=== PATIENT | female | born 1970 | race Caucasian/White ===

== ENCOUNTER → 2024-05-06 | Outpatient (CLI) | payer OTHER, SELFPAY ==
--- NOTE | 2024-05-06 | CYSPIN_PTH ---
PATIENT: VILMA ARCHER LOC: [facility] U#:[id number] AGE/SX: 53/F ROOM: RE05/06/[address]: Dr. Georgiana Wayne MD : 1970 BED: DIS: 05/06/2024 SPEC #: [id number] RECD: 05/07/24 15:00 STATUS: CECI MENDEZ #: [id number] TRACY: 05/06/24 00:[address]: Georgiana Wayne DEPT: CYTOLOGY RECD BY: Linh Koch ENTERED: 05/07/24 08:47 SP TYPE: CYSPIN FL OTHR DR: Violet Croft, TIRE MECHANIC-C Tissues: Urine Procedures: Pap Stain (control) Special Stain Group II Cytospin Fluid HEADER OPERATION: Not noted PRE-OP DIAGNOSIS: Gross hematuria TISSUE SUBMITTED: Urine for cytology DIAGNOSIS CYTOLOGY Urine for cytology (cytospin): Negative for high grade urothelial carcinoma (NSGUC), Kristi System Category II. See comment. PJ/ 05/07/2024 COMMENT The specimen predominantly consists of squamous epithelial cells. Clinical correlation and appropriate follow up are necessary. The Kristi System for urine cytology diagnostic categorization was used in the evaluation of this case. CYTOLOGY STUDY Slides are reviewed. CYTOLOGY GROSS Received is 45 ml of hazy-yellow fluid labeled with the patient's name and and designated per the requisition as urine. Submitted for cytology preparation. Mr 05/07/2024 TC:4 CPT: 05507
[2024-05-06 16:09] LABS: Anion Gap 8 (5-15); BUN 14 mg/dL (7-18); BUN/Creat Ratio 18.7 RATIO (10-20); Calcium,Total 9.7 mg/dL (8.5-10.1); Chloride 106 mmol/L (98-107); Creatinine, Serum 0.75 mg/dL (0.55-1.02); EST Glomerular Filtration Rate 86 mL/min (>60); Est Glom Filt Rate - Afr Amer 104 mL/min (>60); Glucose 93 mg/dL (74-106); Sodium Level 140 mmol/L (136-145)
[2024-05-06 16:47] LABS: Cytology, Body Fluid / CSF SEE PATHOLOGY REPORT
== END | disposition home or self-care (01) ==
PROVIDERS: PCP Nurse Practitioner Primary Care; Referring Provider Urology; Visit Provider Urology
DX: R31.0 Gross hematuria (principal)
CPT/HCPCS: 36415; 80048; 88108; 88313

== ENCOUNTER 2024-07-10 07:57 | Day surgery (SDC) | payer OTHER, SELFPAY ==
[2024-07-10] VITALS (8 sets, daily range): BP systolic 90–123; BP diastolic 56–83; PULSE 67–75; RESP 14–18; TEMP 36.1–36.5; O2SAT 92–98; BMI 35.4
--- NOTE | 2024-07-10 08:12 | PCM.PRE.AN2 ---
ASA Classification* ASA Classification ASA Classification: 2 Assessment & Plan Anesthesia* Anesthesia Assessment Anesthesia Assessment: Discussed sedation and/or anesthesia options, risks, benefits, and alternatives with patient/parents/legal guardian/POA. Questions invited. The patient/parents/legal guardian/POA seems to understand and agrees to proceed with anesthesia plan. Reviewed the physical assessment, medical history, allergy history and patient home medications list prior to surgery/procedure/anesthetic and documented any changes. Performed airway and anesthesia risk assessments. 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 When Was Last Pacemaker Check QUESTION #4 FULL TEXT: You/Your Family Experience fever (hyperthermia) with Anesthesia Last Oral Intake Last Oral intake: Last Oral Intake NPO since Meds taken in AM with sips of water? Meds patient instructed to take am of surgery PONV PONV - corporate wellness coordinator: PONV - corporate wellness coordinator Female Yes 06/17/24 13:53 HX of Motion Sickness No 06/17/24 13:53 HX of N/V After Surgery No 06/17/24 13:53 Non-Smoker Yes 06/17/24 13:53 Duration of Surgery greater No 06/17/24 13:53 than 60 minutes Number of Risk Factors 2 06/17/24 13:53 PONV Score Moderate Risk 06/17/24 13:53 Respiratory Assessment Respiratory Assessment - corporate wellness coordinator: Respiratory Tract Infection Hx - corporate wellness coordinator Hx Respiratory Tract Infection No 06/17/24 13:53 STOP Sleep Apnea STOP Sleep Apnea - corporate wellness coordinator: STOP Sleep Apnea - corporate wellness coordinator Hx Hypertension No 06/17/24 13:53 Hx Sleep Apnea Yes: SLIGHT 06/17/24 13:53 CPAP No 06/17/24 13:53 BIPAP No 06/17/24 13:53 Do you snore loudly (louder than talking or can be heard Do you often feel tired/ fatigued/ sleepy during daytime? Has anyone observed you stop breathing during sleep? STOP Results Positive 06/17/24 13:53 QUESTION #5 FULL TEXT : Do you snore loudly (louder than talking or can be heard through closed doors)? Tobacco Use History Tobacco Use History - corporate wellness coordinator: Tobacco Use History - corporate wellness coordinator Tobacco Use Smoking Status Never smoker 06/17/24 13:53 Hx Tobacco Use No 06/17/24 13:53 Years Smoking Packs Smoked per Day Smoking Cessation Date was within the last 15 years Hx Smoking Cessation Date Hx Smoking Cessation Counseling Hematologic Medial History Hematologic Hx - corporate wellness coordinator: Hematologic Medical Hx - clinical documentation spec Hx of Blood Transfusion No 06/17/24 13:53 Hx of Transfusion in last 3 No 06/17/24 13:53 Months Date of Last Transfusion (if within last 3 months) Ever experience any problems No 06/17/24 13:53 with transfusion(s)? Specify any problems Hx of Preganancy in last 3 N/A 06/17/24 13:53 Months Nurse Filling Out Transfusion NBUCHER 06/17/24 13:53 & Questions: Date: 06/17/24 06/17/24 13:53 Time: 13:54 06/17/24 13:53 Patient unable to answer at this time (ie. confused, unrespo /Reproduction History /Reproductive History - corporate wellness coordinator: /Reproductive Hx- corporate wellness coordinator Hx Now No 06/17/24 13:53 Gestational Age (in weeks): EDC: Hx Hx Para Hx Section SAB No 06/17/24 13:53 Active Medications Active Medications: Current Medications Generic Name Dose Route Start Last Admin Trade Name Freq PRN Reason Stop Dose Admin Cefazolin Sodium 2 gm/ N/A 20 mls @ 400 mls/hr 07/10/24 10:15 IV 07/10/24 10:17 PREOP ONE Lactated Ringer's 1,000 mls @ 15 mls/hr 07/10/24 08:15 IV 07/15/24 21:34 .Q48H [facility] Protocol PFSH Medical History Post-menopausal Low iron Home Medications ?Medication ?Instructions ?Recorded ?Last Taken ?Type ascorbic acid (vitamin C) 1,000 mg 1 g PO DAILY 06/17/24 Unknown History tablet (C-1000) Allergy/AdvReac Type Severity Reaction Status Date / Time No Known Allergies Allergy Verified 06/25/24 09:12 Surgical History History of left breast biopsy History of colonoscopy History of arthroscopy of shoulder Social History Smoking Status: Never smoker Review of Systems (Anesthesia) ROS Narrative System reviewed and no additional complaints, except as documented.
--- OUTSIDE RECORDS SUMMARY | 2024-07-10 08:20 | XMS RPT_ITS | CCD ---
Author Organization [facility] Care Team Providers Care Employment Coach Name Role Phone MANUEL APPEALS OFFICER-MOP MAN, JIM S Primary Care Physicia n MANUEL APPEALS OFFICER-MOP MAN, JIM S Primary Care Unava AMILCAR Carlton MD Attending Unavailable MANUEL APPEALS OFFICER-MOP MAN, JIM S Primary Care Unava ilable MANUEL APPEALS OFFICER-MOP MAN, JIM S Attending Unava ilable MANUEL APPEALS OFFICER-MOP MAN, JIM S Attending Unava ilable MANUEL APPEALS OFFICER-MOP MAN, JIM S Primary Care Unava ilable JC APPEALS OFFICER-MOP MAN, AKIN BOATENG Attending U navailable MANUEL APPEALS OFFICER-MOP MAN, JIM S Primary Care Unava ilable MANUEL APPEALS OFFICER-MOP MAN, JIM S Attending Unava ilable MANUEL APPEALS OFFICER-MOP MAN, JIM S Primary Care Unava ilable MANUEL APPEALS OFFICER-MOP MAN, JIM S Primary Care Unava ilable JC APPEALS OFFICER-MOP MAN, AKIN BOATENG Admitting U navailable JC APPEALS OFFICER-MOP MAN, AKIN BOATENG Attending U AMILCAR Tavarez MD Consulting Unavailable MANUEL APPEALS OFFICER-MOP MAN, JIM S Primary Care Unava ilable MANUEL APPEALS OFFICER-MOP MAN, JIM S Attending Unava ilable MANUEL APPEALS OFFICER-MOP MAN, JIM S Primary Care Unava ilable MANUEL APPEALS OFFICER-MOP MAN, JIM S Attending Unava ilable MOHAN CENTENO Admitting Unavailable MOHAN CENTENO Attending Unavailable MOHAN CENTENO Primary Care Unavailable JC APPEALS OFFICER-MOP MAN, AKIN BOATENG Attending U navailable MANUEL APPEALS OFFICER-MOP MAN, JIM S Primary Care Unava ilable Medications Current Medications Medication Drug Class(es) Dates Sig (Normalized) Sig (Original) Ascorbic Acid (7 sources) Vitamin C Start: 04-22-2022 Vitamin C qDay, 0 Refill(s) Start Date: 04/22/22 Status: Ordered Multivitamin preparation (7 sources) Start: 03-18-2020 take 1 tablet by mouth once daily Multivitamin Dose = 1 tab(s), Oral, Daily, 0 Refill(s) Start Date: 03/18/20 Status: Ordered nystatin 100 unt/mg topical powder (1 source) Polyene Antifungal Start: 05-31-2022 nystatin 100,000 units/g topical powder Apply 1 kayode, Topical, BID, # 30 gram(s), 0 Refill(s), Pharmacy: [facility]/pharmacy #[id number], Powder, 157.5, cm, 05/31/22 9:26:00 EDT, Height, 85.2 Start Date: 05/31/22 Status: Ordered sulfamethoxazole 800 mg / trimethoprim 160 mg oral tablet (2 sources) Dihydrofolate Reductase Inhibitor Antibacterial, Sulfonamide Antimicrobial Start: 02-13-2024 End: 02-18-2024 take 1 tablet by mouth every twelve hours Bactrim DS 800 mg-160 mg oral tablet Dose = 1 tab(s), Oral, q12h, X 5 day(s), # 10 tab(s), 0 Refill(s), Pharmacy: [facility], 161, cm, 02/13/24 11:28:00 EDT, Height, 87.2, kg, 02/13/24 11:28:00 EDT, Dosing Weight Start Date: 02/13/24 Stop Date: 02/18/24 Status: Ordered Problems Problem Classification Problem Date Documented Da te Episodic/Chronic Genitourinary symptoms and ill-defined conditions (5 sources) Blood in urine; Translations: [Hematuria, unspecified] Onset: 02-13-2024 02-13-2024 Episodic Menstrual disorders (7 sources) Disorder of menstruation 11-20-2019 Chronic Nonmalignant breast conditions (4 sources) Breast lump 07-19-2023 Episodic Other lower respiratory disease (6 sources) Snoring 05-31-2022 Episodic Other non-traumatic joint disorders (1 source) Shoulder pain 11-20-2019 Episodic Other screening for suspected conditions (not mental disorders or infectious disease) (7 sources) Stool DNA-based colorectal cancer screening positive 11-29-2020 Episodic Other skin disorders (6 sources) Macerated skin 05-31-2022 Episodic Residual codes; unclassified (5 sources) Sleep apnea 07-13-2022 Chronic Unclassified (7 sources) Cancer cervix screening status 03-18-2020 Unclassified (20 sources) Patient encounter status 03-18-2020 Urinary tract infections (3 sources) Urinary tract infectious disease 02-13-2024 Episodic Viral infection (1 source) Disease caused by 2019-nCoV 04-22-2022 Results Test Name Value Interpretation Reference Range Facility MA MAMMOGRAM DIAGNOSTIC LEFT W/TOMOon 03-04-2024 MA MAMMOGRAM DIAGNOSTIC LEFT W/ROBERTO ORIGINAL FROM: [place] [address] PROCEDURE FOR: VILMA ARCHER [address] [place] [address] Home: PID#: [id number] Exam#: [id number] : 1970 Age: 53 TO: JIM JACKSON APRN [place] [address] Fax: NO FAX EXAMINATION: DIAGNOSTIC DIGITAL LEFT BREAST MAMMOGRAM WITH TOMOSYNTHESIS, 03/04/2024 10:41 am TECHNIQUE: Diagnostic mammography of the left breast was performed with tomosynthesis. 2D standard and 3D tomosynthesis combination imaging performed through the left breast. Computer aided detection was utilized in the interpretation of this exam. Current study was also evaluated with a Computer Aided Detection (CAD) system. COMPARISON: August 07, 2023, July 19, 2023, July 12, 2023, May 11, 2022, March 03, 2021 HISTORY: ORDERING SYSTEM PROVIDED HISTORY: Reason for Exam: 6 MONTH FU FINDINGS: BREAST DENSITY: The breasts are heterogeneously dense, which may obscure small masses. The previously biopsied area in the left breast at 9 o'clock 1-2 cm from the nipple is not visualized on the current study; ultrasound-guided biopsy had yielded benign pathology results on 08/07/2023. No other significant masses, calcifications, or other findings. IMPRESSION: Status post benign ultrasound-guided biopsy of the left breast at 9 o'clock 1-2 cm from the nipple, without residual mass. Left breast ultrasound was performed and will be reported separately. Brianna Shea risk calculations, generated with the history provided, report this patient's 10 year risk and lifetime risk for developing breast cancer at 6.3% and 21.0%, respectively. Based on this assessment tool, if the patient's calculated lifetime risk is below 20%, then the patient is considered at average risk for developing breast cancer. If the patient's calculated lifetime risk is at or above 20%, then the patient is considered high risk for developing breast cancer and may be a candidate for supplemental breast MRI screening in addition to annual mammographic screening per the [employer]. BIRADS: BI-RADS: 0: Incomplete: Need Additional Imaging Evaluation RECALL: immediate RECALL TYPE: Left US LETTER SENT: Normal-Needs additional work up BI-RADS 0 Interpreted by: Lida Balderrama Preliminary Report By: Lida Balderrama Electronically signed By Lida Balderrama Dictated Date: 03/04/2024 12:09:40 PM Prelim Date: 03/04/2024 12:37:45 PM Sign Date: 03/04/2024 12:37:45 PM Ordering Provider: AKIN GREENE CLINICAL: 6 MONTHS FOLLOW-UP. Service Crew Supervisor: ERMIAS FERRER RT(R)(M)(CT) VENDING MACHINE COLLECTOR letter sent: Normal-Needs additional work up BI-RADS 0 Mammogram BI-RADS: 0 Indeterminate Normal [facility] ([place]) US BREAST LEFT LIMITEDon US BREAST LEFT LIMITED ORIGINAL FROM: [address] [address] PROCEDURE FOR: VILMA ARCHER [address] [place] [address] Home: PID#: [id number] Exam#: [id number] : 1970 Age: 53 TO: JIM JACKSON APRN [address] [address] Fax: NO FAX EXAMINATION: ULTRASOUND OF THE LEFT BREAST 03/04/2024 10:42 am TECHNIQUE: Color flow and real-time targeted ultrasound of the left breast 9 o'clock were performed. COMPARISON: March 04, 2024, August 07, 2023, July 19, 2023, July 12, 2023, May 11, 2022, March 03, 2021 HISTORY: ORDERING SYSTEM PROVIDED HISTORY: Reason for Exam: 6 MONTH FU FINDINGS: In the left breast at 9 o'clock 2 cm from the nipple, there is interval resolution of the mass that had been biopsied utilizing ultrasound guidance on August 07, 2023, which yielded benign pathology results. In the left breast at 9 o'clock 2 cm from the nipple at middle to posterior depth, there is an oval, circumscribed, hypoechoic area measuring 0.5 cm within an island of fibroglandular tissue. IMPRESSION: Interval resolution of the mass that had been biopsied in the left breast at 9 o'clock 2 cm from the nipple, which had yielded benign pathology results. Hypoechoic area in the left breast at 9 o'clock 2 cm from the nipple, probably representing a complicated cluster of cysts, probably benign. Follow-up left breast ultrasound in 6 months is recommended; this will be at the time of the patient's annual mammogram, which should be requested as a bilateral diagnostic mammogram. [facility], generated with the history provided, report this patient's 10 year risk and lifetime risk for developing breast cancer at 6.3% and 21.0%, respectively. Based on this assessment tool, if the patient's calculated lifetime risk is below 20%, then the patient is considered at average risk for developing breast cancer. If the patient's calculated lifetime risk is at or above 20%, then the patient is considered high risk for developing breast cancer and may be a candidate for supplemental breast MRI screening in addition to annual mammographic screening per the [employer]. BIRADS: BI-RADS: 3: Probably Benign RECALL: 6 month follow-up RECALL TYPE: Mammo+US LETTER SENT: Probably Benign BI-RADS 3 Interpreted by: Lida Balderrama Preliminary Report By: Lida Balderrama Electronically signed By Lida Balderrama Dictated Date: 03/04/2024 12:37:55 PM Prelim Date: 03/04/2024 12:40:04 PM Sign Date: 03/04/2024 12:40:04 PM Ordering Provider: AKIN JC Service Crew Supervisor: Meg Caicedo letter sent: Probably Benign BI-RADS 3 Ultrasound BI-RADS: 3 Probably benign Normal [facility]) CT UROGRAMon 02-15-2024 CT UROGRAM ORIGINAL EXAMINATION: CT UROGRAM02/15/2024 3:01 pm TECHNIQUE: CT of the abdomen and pelvis was performed with and without the administration of intravenous contrast. Multiplanar reformatted images are provided for review. MIP urogram images were performed. Automated exposure control, iterative reconstruction, and/or weight based adjustment of the mA/kV was utilized to reduce the radiation dose to as low as reasonably achievable. COMPARISON: None. HISTORY: ORDERING SYSTEM PROVIDED HISTORY: Reason for Exam: hematuria FINDINGS: No significant findings in the visualized lower thorax. No acute osseous findings. Multiple simple hepatic cysts which require no additional follow-up. Cholelithiasis and/or biliary sludge. The pancreas, spleen, and adrenal glands are unremarkable. The kidneys, bilateral ureters, urinary bladder, and uterus are unremarkable. No pelvic or inguinal lymphadenopathy. The large and small bowel are non-distended. The appendix appears unremarkable though exhibits a slight increase in diameter distally with a probable appendicolith. No pericecal inflammation is noted. No abdominal lymphadenopathy. The abdominal aorta is normal in caliber. No acute osseous findings. IMPRESSION: 1. No acute intra-abdominal or pelvic findings. No nephrolithiasis. 2. Cholelithiasis. I have personally reviewed the images of this examination and agree with the resident's findings and interpretation. Interpreted by: Diego Amaral MD Preliminary Report By: Eddie Brady Electronically signed By Diego Amaral MD Dictated Date: 02/15/2024 3:03:09 PM Prelim Date: 02/15/2024 3:37:45 PM Sign Date: 02/15/2024 3:37:45 PM Ordering Provider: JIM JACKSON Normal [facility] ([place]) .Urinalysis Microscopic (AO) on 02-13-2024 UA Bacteria Trace Abnormal [facility]) Comment on above: Performed By: #### U A, UAMICAO #### Adali [address] [address] UA RBC LOADED Abnormal None Seen [facility] ([place]) Comment on above: Performed By: #### U A, UAMICAO #### [place] [address] [place], [place] [address] UA Squam Epithelial 0-5 Abnormal None Seen [facility] ([place]) Comment on above: Performed By: #### U A, UAMICAO #### [place] [address] [place], [place] [address] UA WBC 15-25 Abnormal None Seen [facility] ([place]) Comment on above: Performed By: #### U A, UAMICAO #### [place] [address] [place], [place] [address] LABORATORYOrdered By: Amilcar douglas on 02-13-2024 Appearance (U) Cloudy *ABN* (02/13/24 2:33 PM) Invalid Interpretation Code Clear AO Auto Urine SS Bacteria LM.HPF (Urine sed) [#/Area] Trace /HPF Invalid Interpretation Code AO Auto Urine SS Bilirubin Ql (U) Negative (02/13/24 2:33 PM) Normal Negative AO Auto Urine SS Color (U) Yellow (02/13/24 2:33 PM) Normal AO Auto Urine SS Glucose Test strip (U) [Mass/Vol] Negative Normal Negative AO Auto Urine SS Hemoglobin Auto test strip (U) [Mass/Vol] Large *ABN* (02/13/24 2:33 PM) Invalid Interpretation Code Negative AO Auto Urine SS Ketones Ql (U) Negative Normal Negative AO Auto Ur ine SS UA Leuk Est Small *ABN* (02/13/24 2:33 PM) Invalid Interpretation Code Negative AO Auto Urine SS UA Nitrite Negative (02/13/24 2:33 PM) Normal Negative AO Auto Urine SS UA pH 5.5 (02/13/24 2:33 PM) Normal 5.0 - 8.0 AO Auto Urine SS UA Protein 100 mg/dL Invalid Interpretation Code Negative AO Auto Urine SS UA RBC LOADED /HPF Invalid Interpretation Code None Seen AO Auto Urine SS UA Spec Grav >=1.030 *ABN* (02/13/24 2:33 PM) Invalid Interpretation Code 1.015-1.025 AO Auto Urine SS UA Specimen Type Clean Catch (02/13/24 2:33 PM) Normal AO Auto Urine SS UA Squam Epithelial 0-5 /HPF Invalid Interpretation Code None Seen AO Auto Urine SS UA Urobilinogen 0.2 E.U./dL Normal 0.2-1.0 AO Auto Urine SS WBC LM.HPF (Urine sed) [#/Area] 15-25 /HPF Invalid Interpretation Code None Seen AO Auto Urine SS No Panel Informationon 02-12 Culture Urine 10,000 - 50,000 cfu/ ml Mixed growth consistent with normal urogenital ric. [facility] UAon 02-13-2024 Color (U) Yellow Normal [facility] ([place]) Comment on above: Performed By: #### U A, UAMICAO #### [place] [address] Glucose (U) [Mass/Vol] Negative Normal Negative [facility] ([place]) Comment on above: Performed By: #### U A, UAMICAO #### [address] [address] Ketones Ql (U) Negative Normal Negative [facility] ([place]) Comment on above: Performed By: #### U A, UAMICAO #### [address] [address] UA Appear Cloudy Abnormal Clear [facility] ([place]) Comment on above: Performed By: #### U A, UAMICAO #### [address] [address] UA Blood Large Abnormal Negative [facility] ([place]) Comment on above: Performed By: #### U A, UAMICAO #### [address] [address] UA Leuk Est Small Abnormal Negative [facility] ([place]) Comment on above: Performed By: #### U A, UAMICAO #### [address] [address] UA Nitrite Negative Normal Negative [facility] ([place]) Comment on above: Performed By: #### U A, UAMICAO #### [address] [address] UA pH 5.5 Normal 5.0 - 8.0 [facility] ([place]) Comment on above: Performed By: #### U A, UAMICAO #### [address] [address] UA Protein 100 mg/dL Abnormal Negative [facility] ([place]) Comment on above: Performed By: #### U A, UAMICAO #### [address] [address] UA Spec Grav >=1.030 Abnormal 1.015-1.025 [facility] ([place]) Comment on above: Performed By: #### U A, UAMICAO #### [address] [address] UA Specimen Type Clean Catch Normal [facility] ([place]) Comment on above: Performed By: #### U A, UAMICAO #### [address] [address] UA Urobilinogen 0.2 E.U./dL Normal 0.2-1.0 [facility] ([place]) Comment on above: Performed By: #### U A, UAMICAO #### [address] [address] Urobilinogen (U) [Mass/Vol] Negative Normal Negative [facility] ([place]) Comment on above: Performed By: #### U A, UAMICAO #### [address] [address] US BIOPSY BREAST LEFT 1ST LE SIONon 08-13-2023 US BIOPSY BREAST LEFT 1ST LESION ADDENDUM AMENDMENT: 08/13/2023 JUANITA OSBORN MD ADDENDUM: Pathology results are now available and indicate benign breast tissue with slight chronic mastitis. Pathology results are concordant with the imaging findings. Recommendations: A 6 month follow up diagnostic left mammogram and left breast ultrasound are recommended. BIRADS: RECALL: 6 month follow-up RECALL TYPE: Left mammo + US LETTER SENT: Core Biopsy-6 month followup Interpreted by: Juanita Osborn MD Preliminary Report By: Juanita Osborn MD Electronically signed By Juanita Osborn MD Dictated Date: 08/13/2023 8:16:05 AM Prelim Date: 08/13/2023 8:20:40 AM Sign Date: 08/13/2023 8:20:40 AM Ordering Provider: AMILCAR SUE letter sent: Core Biopsy- 6 month followup ORIGINAL FROM: [address] [address] PROCEDURE FOR: VILMA ARCHER [address] [place] [address] Home: PID#: [id number] Exam#: [id number] : 1970 Age: 53 TO: JIM MANUEL APPEALS OFFICER [facility] [address] [place], [place] [address] Fax: NO FAX EXAMINATION: ULTRASOUND-GUIDED BIOPSY LEFT BREAST 08/07/2023 10:05 am COMPARISON: July 19, 2023, July 12, 2023, May 11, 2022, March 03, 2021 HISTORY: ORDERING SYSTEM PROVIDED HISTORY: Reason for Exam: left breast mass FINDINGS: Additional sonographic imaging prior to beginning the procedure demonstrated normal left axillary lymph nodes. The patient states that she had a COVID vaccination in the left arm June 26, 2023. A timeout was performed to confirm patient identification and site of procedure. Risks, benefits, and alternatives of the procedure were discussed. Informed written consent was obtained. An ultrasound guided biopsy using real-time ultrasound was performed for the mass located in the left breast at 9 o'clock position 1-2 cm from the nipple. This was described on the previous ultrasound report. The skin was prepped in the usual manner. Local anesthetic was administered to the access site. A skin andre was made in the breast. A 14 gauge biopsy needle was placed adjacent to the abnormality under ultrasound guidance. Once the needle was documented to be in the correct location, multiple specimens were obtained using a BARD biopsy device, with some decompression of the area of interest following the biopsy. A titanium clip was inserted into the biopsy cavity. Post procedure imaging demonstrates the biopsy marking clip is located proximally 1/2 cm inferomedial to the targeted area of interest, which was appropriately targeted and adequately sampled. A sterile dressing was applied to the access site. The specimens were sent to the laboratory for pathologic analysis. STATUS: Successful IMPRESSION: Ultrasound guided biopsy was successful with no apparent post procedure complications. Awaiting pathology report. An addendum will be made for radiology-pathology correlation when the pathology reports become available. Sonographic imaging of the left axilla demonstrated normal left axillary lymph nodes. BIRADS: RECALL: no message RECALL TYPE: unspecified LETTER SENT: No Letter Interpreted by: Lida Balderrama Preliminary Report By: Lida Balderrama Electronically signed By Lida Balderrama Dictated Date: 08/07/2023 12:37:17 PM Prelim Date: 08/07/2023 12:40:33 PM Sign Date: 08/07/2023 12:40:33 PM Ordering Provider: AMILCAR SUE Service Crew Supervisor: TERENCE PEREZ RT,[facility] ([place]) Final Surgical Pathology Rep tiffanie 08-08-2023 Final Surgical Pathology Report . Pathology Reports Accession: Collected Date/Time: Received Date/Time: Pathologist: [id number] 08/07/2023 12:04 EST 08/07/2023 14:08 MIRI DELGADILLO MD Final Surgical Pathology Report DIAGNOSIS: LEFT BREAST MASS, NEEDLE CORE BIOPSY AT 9:00: - BREAST TISSUE WITH SLIGHT CHRONIC MASTITIS. NO EVIDENCE OF MALIGNANCY IN THIS BIOPSY SPECIMEN CLINICAL INFORMATION: 6 MM MASS LEFT BREAST 9:00 SPECIMEN: A 6 MM LEFT BREAST MASS BX 9:00 GROSS DESCRIPTION: A. Received in formalin, labeled with the patients name, Case # [id number], and undesignated on the container 1 yellow-white cores of soft tissue, 0.4 cm in length TS-1 Time removed from patient: 1202 Time placed in formalin: 1204 Cold ischemic time-2 minutes Total time in formalin (in processor)-6 hours Total time in formalin fixative-9.5 hours Cold ischemic time- within the parameters of ASCO/CAP guidelines Total fixation time- within the parameters of ASCO/CAP guidelines (at least 6 hours and not exceeding 72 hours) Dictated by KALEB MATOS MICROSCOPIC DESCRIPTION: The microscopic examination is performed, except in the case of Gross Only. Electronically Signed by Pathology Report verified by [facility] MIRI WILLARD Sign out Date: 08/08/2023 15:16 Performing Lab: [facility], [address] [place] [address] Pathology Dept Disclaimer If ancillary studies were utilized, the following Laboratory Developed Test (LDT) disclaimer will apply: Under CLIA requirements, [facility] is qualified to perform high complexity testing. For all ancillary stains, positive and negative controls stain appropriately. Performance characteristics of immunohistochemical and chromogenic in-situ hybridization tests have been determined by [facility]. These tests are used for clinical purposes, They should not be regarded as investigational or for research. Normal [facility] ([place]) MA MAMMOGRAM DIAGNOSTIC LEFT on 08-07-2023 MA MAMMOGRAM DIAGNOSTIC LEFT ORIGINAL FROM: [facility] [address] [place] [address] PROCEDURE FOR: V[address]MA ARCH[address] [address] [place] [address] Home: PID#: [id number] Exam#: [id number] : 1970 Age: 53 TO: JIM JACKSON APRN [address] [address] Fax: NO FAX EXAMINATION: DIAGNOSTIC DIGITAL LEFT BREAST MAMMOGRAM, 08/07/2023 12:11 pm TECHNIQUE: Diagnostic mammography of the left breast was performed. Current study was also evaluated with a Computer Aided Detection (CAD) system. COMPARISON: August 07, 2023, July 19, 2023, July 12, 2023, May 11, 2022, March 03, 2021 HISTORY: Post biopsy marking clip placement FINDINGS: BREAST DENSITY: Heterogeneously dense This exam was utilized for confirmation of placement of a biopsy marking clip in the left breast. The clip is located approximately 1/2 cm inferomedial to the targeted area, which was appropriately targeted and adequately sampled. IMPRESSION: Confirmation of placement of a biopsy marking clip located approximately 1/2 cm inferomedial to the targeted area, which was appropriately targeted and adequately sampled. BIRADS: MAMMOGRAM BI-RADS: n/a RECALL: no message RECALL TYPE: unspecified LETTER SENT: No Letter Interpreted by: Lida Balderrama Preliminary Report By: Lida Balderrama Electronically signed By Lida Balderrama Dictated Date: 08/07/2023 12:40:42 PM Prelim Date: 08/07/2023 12:41:45 PM Sign Date: 08/07/2023 12:41:45 PM Ordering Provider: AMILCAR SUE CLINICAL: POST ULTRASOUND CORE BIOPSY LEFT BREAST W/ CLIP PLACEMENT. Service Crew Supervisor: ELIZABETH BROWN RT(R)(M) Mammogram BI-RADS: n/a Normal [facility] ([place]) MA MAMMOGRAM DIAGNOSTIC LEFT W/TOMOon 07-19-2023 MA MAMMOGRAM DIAGNOSTIC LEFT W/ROBERTO ORIGINAL FROM: [address] [address] PROCEDURE FOR: V[address]MA AR[address] [address] [place] [address] Home: PID#: [id number] Exam#: [id number] : 1970 Age: 53 TO: JIM JACKSON APRN [address] [address] Fax: NO FAX EXAMINATION: DIAGNOSTIC DIGITAL LEFT BREAST MAMMOGRAM WITH TOMOSYNTHESIS, 07/19/2023 8:37 am TECHNIQUE: Diagnostic mammography of the left breast was performed with tomosynthesis. 2D standard and 3D tomosynthesis combination imaging performed through the left breast. Computer aided detection was utilized in the interpretation of this exam. Current study was also evaluated with a Computer Aided Detection (CAD) system. COMPARISON: 07/12/2023, 05/11/2022 HISTORY: ORDERING SYSTEM PROVIDED HISTORY: Reason for Exam: call back abnormal mammogram Left breast mass 9 o'clock FINDINGS: BREAST DENSITY: Scattered fibroglandular tissue There is a 6 mm irregular mass in the left breast at 9 o'clock anterior depth. There are associated coarse calcifications. This is confirmed on additional views. No other significant masses, calcifications, or other findings. IMPRESSION: The 6 mm irregular mass in the left breast at 9 o'clock is indeterminate. A left breast ultrasound will be performed today and reported separately. Brianna Mccormackzick risk calculations, generated with the history provided, report this patient's 10 year risk and lifetime risk for developing breast cancer at 5.2% and 17.4%, respectively. Based on this assessment tool, if the patient's calculated lifetime risk is below 20%, then the patient is considered at average risk for developing breast cancer. If the patient's calculated lifetime risk is at or above 20%, then the patient is considered high risk for developing breast cancer and may be a candidate for supplemental breast MRI screening in addition to annual mammographic screening per the [employer]. BIRADS: MAMMOGRAM BI-RADS: 0: Needs addl evaluation RECALL: immediate RECALL TYPE: Left US LETTER SENT: Abnormal-Needs additional work up BI-RADS 0 Interpreted by: Robin Phillips MD Preliminary Report By: Robin Phillips MD Electronically signed By Robin Phillips MD Dictated Date: 07/19/2023 12:40:05 PM Prelim Date: 07/19/2023 12:42:56 PM Sign Date: 07/19/2023 12:42:56 PM Ordering Provider: JIM JACKSON CLINICAL: MAMMOGRAPHIC DENSITY LEFT BREAST. Service Crew Supervisor: BING ROCA RT(R) (M) letter sent: Abnormal-Needs additional work up BI-RADS 0 Mammogram BI-RADS: 0 Indeterminate Normal [facility] ([place]) US BREAST LEFT LIMITEDon US BREAST LEFT LIMITED ORIGINAL FROM: [address] [address] PROCEDURE FOR: VILMA ARCHER [address] [place] [address] Home: PID#: [id number] Exam#: [id number] : 1970 Age: 53 TO: JIM JACKSON APPEALS OFFICER [place] [address] Fax: NO FAX EXAMINATION: ULTRASOUND OF THE LEFT BREAST 07/19/2023 8:37 am TECHNIQUE: Color flow and real-time targeted ultrasound of the left breast 9 o'clock were performed. COMPARISON: 07/19/2023, 07/12/2023, 05/11/2022 HISTORY: ORDERING SYSTEM PROVIDED HISTORY: Reason for Exam: callback abnormal mammo Left breast mass 9 o'clock FINDINGS: There is a 7 mm irregular hypoechoic mass in the left breast at 9 o'clock anterior depth 2 cm from the nipple. This correlates with the mammographic finding. There is no vascularity present. There are internal echoes. IMPRESSION: The 7 mm irregular mass in the left breast at 9 o'clock appears suspicious for malignancy. An ultrasound guided biopsy is recommended. BIRADS: MAMMOGRAM BI-RADS: 4: Suspicious abnormality RECALL: immediate RECALL TYPE: Biopsy followup LETTER SENT: Biopsy Recommended BI-RADS 4 and 5 Interpreted by: Robin Phillips MD Preliminary Report By: Robin Phillips MD Electronically signed By Robin Phillips MD Dictated Date: 07/19/2023 12:43:07 PM Prelim Date: 07/19/2023 12:44:18 PM Sign Date: 07/19/2023 12:44:18 PM Ordering Provider: JIM JACKSON CLINICAL: MAMMOGRAPHIC DENSITY LEFT BREAST. Service Crew Supervisor: VILMA [facility] [[email or web address]] letter sent: Biopsy Recommended BI-RADS 4 and 5 Ultrasound BI-RADS: 4 Suspicious for malignancy Normal [facility] ([place]) MA MAMMOGRAM SCREENING BILAT ERAL W/TOMOon 07-14-2023 MA MAMMOGRAM SCREENING BILATERAL W/ROBERTO ORIGINAL FROM: [place] [address] PROCEDURE FOR: VILMA ARCHER [address] [place] [id number] Home: PID#: [id number] Exam#: [id number] : 1970 Age: 53 TO: JIM JACKSON [place] [address] Fax: NO FAX EXAMINATION: SCREENING DIGITAL BILATERAL MAMMOGRAM WITH TOMOSYNTHESIS, 07/12/2023 TECHNIQUE: Screening mammography of the bilateral breasts was performed with tomosynthesis. 2D standard and 3D tomosynthesis combination imaging performed through both breasts in the MLO and CC projection. Computer aided detection was utilized in the interpretation of this exam. COMPARISON: 05/11/2022 and 03/03/2020 HISTORY: Screening. FINDINGS: BREAST DENSITY: Heterogeneously dense In the left breast 9 o'clock anterior depth 2 cm posterior to the nipple there is a 6 mm mass with some associated coarse calcifications. There are no other significant masses or calcifications otherwise. IMPRESSION: New left breast mass, this could be a degenerating fibroadenoma but spot MLO and CC tomosynthesis through the area and an ultrasound is recommended to further evaluate. BIRADS: MAMMOGRAM BI-RADS: 0: Needs addl evaluation RECALL: immediate RECALL TYPE: Mammo + US LETTER SENT: Needs Additional Imaging BI-RADS 0 Interpreted by: Diego Kapoor MD Preliminary Report By: Diego Kapoor MD Electronically signed By Diego Kapoor MD Dictated Date: 07/14/2023 11:31:44 AM Prelim Date: 07/14/2023 11:38:15 AM Sign Date: 07/14/2023 11:38:15 AM Ordering Provider: JIM JACKSON Service Crew Supervisor: BING ROCA RT(R) (M) letter sent: Abnormal-Needs additional work up BI-RADS 0 Mammogram BI-RADS: 0 Indeterminate Normal [facility]) GLUon 07-12-2023 Glucose [Mass/Vol] 98 mg/dL Normal 70-105 [facility] ([place]) Comment on above: Performed By: #### G MARIA M, LIPID ####[place] [address] [place] [address] LABORATORYOrdered By: Kaykay Spangler on 07-12-2023 Cholesterol [Mass/Vol] 195 mg/dL Invalid Interpretation Code 0 - 200 mg/dL AO ADM SS Comment on above: Interpretive Data: C holesterol Reference Interval: Less than 200 Desirable 200-239 Borderline high risk 240 and above High risk Cholesterol in HDL [Mass/Vol] 54 mg/dL Invalid Interpretation Code 40 - 60 mg/dL AO ADM SS Cholesterol in LDL [Mass/Vol] 119 mg/dL Invalid Interpretation Code 0 - 130 mg/dL AO ADM SS Triglyceride [Mass/Vol] 108 mg/dL Invalid Interpretation Code 0 - 150 mg/dL AO ADM SS Comment on above: Interpretive Data: T riglyceride Reference Interval: Less than 150 Normal 150-199 Borderline high risk 200-499 High risk 500 or higher Very high risk LABORATORYOrdered By: SYSTEM SYSTEM on 07-12-2023 Glucose [Mass/Vol] 98 mg/dL Invalid Interpretation Code 70 - 105 mg/dL AO ADM SS LIPIDon 07-12-2023 Cholesterol [Mass/Vol] 195 mg/dL Normal 0-200 [facility] ([place]) Comment on above: Result Comment: Chol esterol Reference Interval: Less than 200 Desirable 200-239 Borderline high risk 240 and above High risk Performed By: #### [place] FRANZ, LIPID ####[id number] [place], [place] [address] Cholesterol in HDL [Mass/Vol] 54 mg/dL Normal 40-60 [facility] ([place]) Comment on above: Performed By: #### [place] FRANZ, LIPID ####[id number] [place], [place] [address] Cholesterol in LDL [Mass/Vol] 119 mg/dL Normal 0-130 [facility] ([place]) Comment on above: Performed By: #### [place] FRANZ, LIPID ####[address] [place], [place] [address] Triglyceride [Mass/Vol] 108 mg/dL Normal 0-150 [facility] ([place]) Comment on above: Result Comment: Trig lyceride Reference Interval: Less than 150 Normal 150-199 Borderline high risk 200-499 High risk 500 or higher Very high risk Performed By: #### [place] FRANZ, LIPID ####[id number] [place], [place] [address] LABORATORYOrdered By: Lani Neville on 06-14-2022 Cholesterol [Mass/Vol] 203 mg/dL Invalid Interpretation Code 0 - 200 mg/dL AO ADM SS Cholesterol in HDL [Mass/Vol] 58 mg/dL Invalid Interpretation Code 40 - 60 mg/dL AO ADM SS Cholesterol in LDL [Mass/Vol] 117 mg/dL Invalid Interpretation Code 0 - 130 mg/dL AO ADM SS Glucose [Mass/Vol] 88 mg/dL Invalid Interpretation Code 70 - 105 mg/dL AO ADM SS Triglyceride [Mass/Vol] 139 mg/dL Invalid Interpretation Code 0 - 150 mg/dL AO ADM SS Encounters Encounter Date Encounter Type Care Provider Facility Start: 06-24-2024 ambulatory AKIN GREENE APPEALS OFFICER-MOP MAN Facility:[facility] Start: 05-30-2024 ambulatory MOHAN [facility] Start: 04-01-2024 ambulatory AKIN GREENE APPEALS OFFICER-MOP MAN Facility:B Start: 03-04-2024 End: 03-04-2024 ambulatory JIM Castro MANUEL [employer] OFFICER[employer] MAN Facility:B Start: 03-04-2024 End: 03-04-2024 Patient encounter procedure AKIN GREENE APPEALS OFFICER-MOP MAN [facility] Start: 02-15-2024 End: 02-15-2024 ambulatory JIM Castro MANUEL [employer] OFFICER[employer] MAN Facility:B Start: 02-15-2024 End: 02-15-2024 Patient encounter procedure JIM Castro MANUEL [employer] OFFICER[employer] MAN [facility] Start: 02-13-2024 End: 02-17-2024 ambulatory JIM Castro MAN[employer]EL [employer] OFFICER[employer] MAN Facility:B Start: 02-13-2024 End: 02-17-2024 Outreach Lab JIM Castro [employer]EL [employer] OFF[employer]ER[employer] MAN [facility] Start: 08-07-2023 End: 08-07-2023 ambulatory JIM Castro [employer]EL [employer] OFFICER[employer] MAN Facility:A Start: 07-19-2023 End: 07-19-2023 Patient encounter procedure JIM Castro MANUEL [employer] OFF[employer]ER[employer] [facility] Start: 07-19-2023 End: 07-19-2023 ambulatory JIM Castro [employer]EL [employer] Facility:B Start: 07-12-2023 End: 07-12-2023 ambulatory JIM S MANUEL APPEALS OFFICER[employer] MAN Facility:B Start: 07-12-2023 End: 07-12-2023 Patient encounter procedure JIM Castro MAN[employer]EL [employer] OFFICER[employer] [facility] Start: 06-14-2022 End: 06-14-2022 Patient encounter procedure JIM Castro MANUEL APPEALS OFFICER[employer]MOP MAN [facility] Start: 05-11-2022 End: 05-11-2022 Patient encounter procedure JIM JACKSON APPEALS OFFICER[employer] MAN [facility] Procedures Date Procedure Procedure Detail Performing Clinician Start: 09-17-2019 History of repair of musculotendinous cuff of shoulder JIM JACKSON APPEALS OFFICER[employer] MAN Immunizations Immunization Date Immunization Notes Care Provider [facility] 06-26-2023 influenza virus vaccine, unspecified formulation JIM JACKSON APPEALS OFFICER[employer] MAN [facility] 06-19-2022 influenza virus vaccine, unspecified formulation JIM JACKSON APPEALS OFFICER[employer]MOP MAN [facility] 06-19-2022 SARS-CoV-2 (CV19)mRNA-1273 bivalent vac JIM JACKSON APPEALS OFF[employer] [facility] 07-22-2021 influenza virus vaccine, unspecified formulation JIM JACKSON APPEALS OFF[employer]ER[employer] MAN [facility] 07-22-2021 SARS-CoV-2 (COVID-19 ) mRNA-1273 vaccine JIM JACKSON APPEALS OFFICER[employer] MAN [facility] Comment on above: Result Comment: 2021: TPV50 03-16-2021 tetanus toxoid, redu rashida diphtheria toxoid, and acellular pertussis vaccine, adsorbed; Translations: [Boostrix (Tdap)] JIM JACKSON APPEALS OFFICER[employer]MOP MAN [facility] 11-23-2020 SARS-CoV-2 mRNA (tozinameran) vaccine JIM JACKSON APPEALS OFFICER[employer]OP MAN [facility] 11-01-2020 SARS-CoV-2 mRNA (williamzinameran) vaccine JIM JACKSON APPEALS OFFICER[employer] MAN [facility] 05-24-2012 hepatitis A vaccine, adult dosage JIM JACKSON APPEALS OFFICER[employer]OP MAN [facility] 10-20-2011 hepatitis A vaccine, adult dosage JIM JACKSON APPEALS OFFICER[employer]OP MAN [facility] 10-20-2011 tetanus toxoid, redu rashida diphtheria toxoid, and acellular pertussis vaccine, adsorbed JIM JACKSON APPEALS OFFICER[employer]MOP MAN [facility] Payers Date Payer Category Payer Unknown [id number] 1970 Unknown [id number] 2.16.8 [id number] 1970 Unknown [id number] 2.16.8 [id number] 1970 Unknown [id number] 2.16.8 [id number]. 1970 Unknown [id number] 2.16.8 [id number] 1970 Unknown [id number] 2.16.8 [id number] 1970 Unknown [id number] 2.16.8 [id number] 1970 Unknown [id number] 2.16.8 [id number] 1970 Unknown [id number] 2.16.8 [id number] 1970 Unknown [id number] 2.16.8 [id number] 1970 Unknown [id number] 2.16.8 [id number] Unknown [id number] Social History Date Type Detail Facility Start: 11-20-2019 Tobacco smoking status Never s moked tobacco (finding) [facility] Sex Assigned At Sex [facility] Clinical Notes 07-19-2023 to 03-04-2024 LaboratoryRadiologyRadiology Note Date & Type Note Facility 03-04-2024 Note ORIGINAL FROM: [place] [address] PROCEDURE FOR: VILMA ARCHER [address] [place] [address] Home: PID#: [id number] Exam#: [id number] : 1970 Age: 53 TO: JIM JACKSON APPEALS OFFICER [place] [address] Fax: NO FAX EXAMINATION: ULTRASOUND OF THE LEFT BREAST 03/04/2024 10:42 am TECHNIQUE: Color flow and real-time targeted ultrasound of the left breast 9 o'clock were performed. COMPARISON: March 04, 2024, August 07, 2023, July 19, 2023, July 12, 2023, May 11, 2022, March 03, 2021 HISTORY: ORDERING SYSTEM PROVIDED HISTORY: Reason for Exam: 6 MONTH FU FINDINGS: In the left breast at 9 o'clock 2 cm from the nipple, there is interval resolution of the mass that had been biopsied utilizing ultrasound guidance on August 07, 2023, which yielded benign pathology results. In the left breast at 9 o'clock 2 cm from the nipple at middle to posterior depth, there is an oval, circumscribed, hypoechoic area measuring 0.5 cm within an island of fibroglandular tissue. IMPRESSION: Interval resolution of the mass that had been biopsied in the left breast at 9 o'clock 2 cm from the nipple, which had yielded benign pathology results. Hypoechoic area in the left breast at 9 o'clock 2 cm from the nipple, probably representing a complicated cluster of cysts, probably benign. Follow-up left breast ultrasound in 6 months is recommended; this will be at the time of the patient's annual mammogram, which should be requested as a bilateral diagnostic mammogram. Brianna Shea risk calculations, generated with the history provided, report this patient's 10 year risk and lifetime risk for developing breast cancer at 6.3% and 21.0%, respectively. Based on this assessment tool, if the patient's calculated lifetime risk is below 20%, then the patient is considered at average risk for developing breast cancer. If the patient's calculated lifetime risk is at or above 20%, then the patient is considered high risk for developing breast cancer and may be a candidate for supplemental breast MRI screening in addition to annual mammographic screening per the [employer]. BIRADS: BI-RADS: 3: Probably Benign RECALL: 6 month follow-up RECALL TYPE: Mammo+US LETTER SENT: Probably Benign BI-RADS 3 Interpreted by: Lida Balderrama Preliminary Report By: Lida Balderrama Electronically signed By Lida Balderrama Dictated Date: 03/04/2024 12:37:55 PM Prelim Date: 03/04/2024 12:40:04 PM Sign Date: 03/04/2024 12:40:04 PM Ordering Provider: AKIN GREENE Service Crew Supervisor: Meg Caicedo letter sent: Probably Benign BI-RADS 3 Ultrasound BI-RADS: 3 Probably benign [facility] 03-04-2024 Note ORIGINAL FROM: [place] [address] PROCEDURE FOR: VILMA ARCHER [address] [place] [address] Home: PID#: [id number] Exam#: [id number] : 1970 Age: 53 TO: JIM JACKSON APR[address] [address] Fax: NO FAX EXAMINATION: DIAGNOSTIC DIGITAL LEFT BREAST MAMMOGRAM WITH TOMOSYNTHESIS, 03/04/2024 10:41 am TECHNIQUE: Diagnostic mammography of the left breast was performed with tomosynthesis. 2D standard and 3D tomosynthesis combination imaging performed through the left breast. Computer aided detection was utilized in the interpretation of this exam. Current study was also evaluated with a Computer Aided Detection (CAD) system. COMPARISON: August 07, 2023, July 19, 2023, July 12, 2023, May 11, 2022, March 03, 2021 HISTORY: ORDERING SYSTEM PROVIDED HISTORY: Reason for Exam: 6 MONTH FU FINDINGS: BREAST DENSITY: The breasts are heterogeneously dense, which may obscure small masses. The previously biopsied area in the left breast at 9 o'clock 1-2 cm from the nipple is not visualized on the current study; ultrasound-guided biopsy had yielded benign pathology results on 08/07/2023. No other significant masses, calcifications, or other findings. IMPRESSION: Status post benign ultrasound-guided biopsy of the left breast at 9 o'clock 1-2 cm from the nipple, without residual mass. Left breast ultrasound was performed and will be reported separately. [facility], generated with the history provided, report this patient's 10 year risk and lifetime risk for developing breast cancer at 6.3% and 21.0%, respectively. Based on this assessment tool, if the patient's calculated lifetime risk is below 20%, then the patient is considered at average risk for developing breast cancer. If the patient's calculated lifetime risk is at or above 20%, then the patient is considered high risk for developing breast cancer and may be a candidate for supplemental breast MRI screening in addition to annual mammographic screening per the [employer]. BIRADS: BI-RADS: 0: Incomplete: Need Additional Imaging Evaluation RECALL: immediate RECALL TYPE: Left US LETTER SENT: Normal-Needs additional work up BI-RADS 0 Interpreted by: Lida Balderrama Preliminary Report By: Lida Balderrama Electronically signed By Lida Balderrama Dictated Date: 03/04/2024 12:09:40 PM Prelim Date: 03/04/2024 12:37:45 PM Sign Date: 03/04/2024 12:37:45 PM Ordering Provider: AKIN GREENE CLINICAL: 6 MONTHS FOLLOW-UP. Service Crew Supervisor: ERMIAS FERRER RT(R)(M)(CT) VENDING MACHINE COLLECTOR letter sent: Normal-Needs additional work up BI-RADS 0 Mammogram BI-RADS: 0 Indeterminate [facility] 02-26-2024 Evaluation + Plan note Future Scheduled TestsUrinalysis w/ C&S if Indicated 02/26/24MA Mammo Diagnostic Left w/ Roberto 03/04/24US Breast Left Limited 03/04/24CT Urogram 02/14/24 [facility] 02-15-2024 Note ORIGINAL EXAMINATION: CT UROGRAM02/15/2024 3:01 pm TECHNIQUE: CT of the abdomen and pelvis was performed with and without the administration of intravenous contrast. Multiplanar reformatted images are provided for review. MIP urogram images were performed. Automated exposure control, iterative reconstruction, and/or weight based adjustment of the mA/kV was utilized to reduce the radiation dose to as low as reasonably achievable. COMPARISON: None. HISTORY: ORDERING SYSTEM PROVIDED HISTORY: Reason for Exam: hematuria FINDINGS: No significant findings in the visualized lower thorax. No acute osseous findings. Multiple simple hepatic cysts which require no additional follow-up. Cholelithiasis and/or biliary sludge. The pancreas, spleen, and adrenal glands are unremarkable. The kidneys, bilateral ureters, urinary bladder, and uterus are unremarkable. No pelvic or inguinal lymphadenopathy. The large and small bowel are non-distended. The appendix appears unremarkable though exhibits a slight increase in diameter distally with a probable appendicolith. No pericecal inflammation is noted. No abdominal lymphadenopathy. The abdominal aorta is normal in caliber. No acute osseous findings. IMPRESSION: 1. No acute intra-abdominal or pelvic findings. No nephrolithiasis. 2. Cholelithiasis. I have personally reviewed the images of this examination and agree with the resident's findings and interpretation. Interpreted by: Diego Amaral MD Preliminary Report By: Eddie Brady Electronically signed By Diego Amaral MD Dictated Date: 02/15/2024 3:03:09 PM Prelim Date: 02/15/2024 3:37:45 PM Sign Date: 02/15/2024 3:37:45 PM Ordering Provider: JIM JACKSON [facility] 02-15-2024 Note . MICRO - Microbiology PROCEDURE: Urine Culture [*1] SOURCE: Urine, Clean Catch BODY SITE: COLLECTED DATE/TIME: 02/13/2024 14:33 EDT RECEIVED DATE/TIME: 02/13/2024 19:48 EDT START DATE/TIME: 02/13/2024 19:48 EDT FREE TEXT SOURCE: FINAL REPORTS Final Report [] Verified Date/Time/Personnel: 02/15/2024 07:39 EDT 10,000 - 50,000 cfu/ml Mixed growth consistent with normal urogenital ric. PRELIMINARY REPORTS Preliminary Report [] Verified Date/Time/Personnel: 02/14/2024 09:09 EDT No growth to date Performing Locations *1: This test was performed at: [address], [facility] ([place]) 02-15-2024 Note . MICRO - Microbiology PROCEDURE: Urine Culture [O1 *1] SOURCE: Urine BODY SITE: COLLECTED DATE/TIME: 02/13/2024 14:33 EDT RECEIVED DATE/TIME: 02/13/2024 19:48 EDT START DATE/TIME: 02/13/2024 19:48 EDT FREE TEXT SOURCE: FINAL REPORTS Final Report [] Verified Date/Time/Personnel: 02/15/2024 07:35 EDT 10,000 - 50,000 cfu/ml Mixed growth consistent with normal urogenital ric. PRELIMINARY REPORTS Preliminary Report [] Verified Date/Time/Personnel: 02/14/2024 09:09 EDT No growth to date Order Comments O1: Urine Culture Added by Discern Performing Locations *1: This test was performed at: [address], [facility] ([place]) 07-19-2023 Note ORIGINAL FROM: [place] [address] PROCEDURE FOR: VILMA ARCHER [address] [place] [address] Home: PID#: [id number] Exam#: [id number] : 1970 Age: 53 TO: JIM JACKSON APPEALS OFFICER [place] [address] Fax: NO FAX EXAMINATION: DIAGNOSTIC DIGITAL LEFT BREAST MAMMOGRAM WITH TOMOSYNTHESIS, 07/19/2023 8:37 am TECHNIQUE: Diagnostic mammography of the left breast was performed with tomosynthesis. 2D standard and 3D tomosynthesis combination imaging performed through the left breast. Computer aided detection was utilized in the interpretation of this exam. Current study was also evaluated with a Computer Aided Detection (CAD) system. COMPARISON: 07/12/2023, 05/11/2022 HISTORY: ORDERING SYSTEM PROVIDED HISTORY: Reason for Exam: call back abnormal mammogram Left breast mass 9 o'clock FINDINGS: BREAST DENSITY: Scattered fibroglandular tissue There is a 6 mm irregular mass in the left breast at 9 o'clock anterior depth. There are associated coarse calcifications. This is confirmed on additional views. No other significant masses, calcifications, or other findings. IMPRESSION: The 6 mm irregular mass in the left breast at 9 o'clock is indeterminate. A left breast ultrasound will be performed today and reported separately. [facility], generated with the history provided, report this patient's 10 year risk and lifetime risk for developing breast cancer at 5.2% and 17.4%, respectively. Based on this assessment tool, if the patient's calculated lifetime risk is below 20%, then the patient is considered at average risk for developing breast cancer. If the patient's calculated lifetime risk is at or above 20%, then the patient is considered high risk for developing breast cancer and may be a candidate for supplemental breast MRI screening in addition to annual mammographic screening per the [employer]. BIRADS: MAMMOGRAM BI-RADS: 0: Needs addl evaluation RECALL: immediate RECALL TYPE: Left US LETTER SENT: Abnormal-Needs additional work up BI-RADS 0 Interpreted by: Robin Phillips MD Preliminary Report By: Robin Phillips MD Electronically signed By Robin Phillips MD Dictated Date: 07/19/2023 12:40:05 PM Prelim Date: 07/19/2023 12:42:56 PM Sign Date: 07/19/2023 12:42:56 PM Ordering Provider: JIM JACKSON CLINICAL: MAMMOGRAPHIC DENSITY LEFT BREAST. Service Crew Supervisor: BING ROCA RT(R) (M) letter sent: Abnormal-Needs additional work up BI-RADS 0 Mammogram BI-RADS: 0 Indeterminate [facility] Evaluation + Plan note Future Appointments Appointment Date:05/31/2022 09:30:00 AM Scheduled Provider:JIM JACKSON [facility] Appointment Type:PC OV [facility] Evaluation + Plan note Future Appointments Appointment Date:06/28/2022 07:00:00 PM Scheduled Provider: Location:[facility] Appointment Type:SL Home Studies [facility] Evaluation + Plan note Future Appointments Appointment Date:03/04/2024 09:45:00 AM Scheduled Provider: Location:[facility] Appointment Type:[place] Mammogram Diagnostic Left w/ Roberto Appointment Date:03/04/2024 10:30:00 AM Scheduled Provider: Location:[facility]RAY Appointment Type:US Breast Left Limited Future Scheduled TestsMA Mammo Diagnostic Left w/ Roberto 03/04/24US Breast Left Limited 03/04/24CT Urogram 02/14/24 [facility] Hospital course Narrative No data available for this section [facility] Hospital Discharge instructions No data available for this section [facility] Progress note No data available for this section [facility] Summary Purpose Family History No Family History Records Found Advance Directives No Advanced Directives Records FoundNo Advanced Directives Records FoundNo Advanced Directives Records Found Additional Source Comments Care Team (unrecognized sect ion and content) Care Team Personnel Name: JIM JACKSON Position: P4 Advanced Practice Nurse Member Role: Primary Care Physician Address: Address: [address] [facility] [place] [address]- Care Team Related Persons Name: AYE ARCHER Address: [id number] [place] [phone] Care Team Personnel Name: JIM JACKSON Position: P4 Advanced Practice Nurse Med Service: Employed Provider Member Role: Primary Care Physician Address: Address: [address] [place] [address] [place] Care Team Related Persons Name: AYE ARCHER Address: Home [address] [facility], [place] [id number] [place] Patient Care team informatio n (unrecognized section and content) Care Team Personnel Name: JIM JACKSON APPEALS OFFICER-MOP MAN Position: P4 Advanced Snowboard Instructor Member Role: Primary Care Physician Address: Address: [address] [place] [address] [place] Care Team Related Persons Name: AYE ARCHER Address: Home [address] [place], [place] [phone] [place] Care Team Personnel Name: JIM JACKSON APPEALS OFFICER-MOP MAN Position: P4 Advanced Snowboard Instructor Member Role: Primary Care Physician Address: Address: [address] [place] [address]- Care Team Related Persons Name: AYE ARCHER Address: Home [address] [place], [place] [phone] [place] Care Team Personnel Name: JIM JACKSON APPEALS OFFICER-MOP MAN Position: P4 Advanced Snowboard Instructor Member Role: Primary Care Physician Address: Address: [address] [place] [address] [place] Care Team Related Persons Name: AYE ARCHER Address: Home [address] [place], [place] [phone] [place] Name: JAREN ARCHER Address: Home [address] [place], [place] [phone] [place] Address: Temporary [address] [place], [place] [phone] Care Team Personnel Name: JIM JACKSON APPEALS OFFICER-MOP MAN Position: P4 Advanced Snowboard Instructor Member Role: Primary Care Physician Address: Address: [address] [place] [address] [place] Care Team Related Persons Name: AYE ARCHER Address: Home [address] [facility], [place] [phone] [place] Name: JAREN ARCHER Address: Home [address] [facility], [place] [phone] [place] Address: Temporary [address] [place], [place] [phone] Care Team Personnel Name: JIM JACKSON APPEALS OFFICER-MOP MAN Position: P4 Advanced Snowboard Instructor Member Role: Primary Care Physician Address: Address: [address] [facility] [place], [place] [address] Care Team Related Persons Name: AYE ARCHER Address: Home [address] [place], [place] [phone] [place] Name: SUZI JAREN Dias Address: Home [address] [place], [place] [phone] [place] Address: [facility] [address] [place] [phone] INFORMATION SOURCE (unrecogn ized section and content) DATE CREATED AUTHOR 04/05/2024 [facility] ([place]) DATE CREATED AUTHOR AUTHOR'S ORGANIZ ATION 06/01/2024 [facility] DATE CREATED AUTHOR AUTHOR'S ORGANIZ ATION 06/25/2024 [facility] FOR RECORDS PERTAINING TO PATIENTS WHO ARE OR HAVE BEEN ENROLLED IN A CHEMICAL DEPENDENCY/SUBSTANCEABUSE PROGRAM, SOME INFORMATION MAY BE OMITTED. This clinical summary was aggregated from multiple sources. Caution should be exercised in using it in the provision of clinical care. This summary normalizes information from multiple sources, and as a consequence, information in this document may materially change the coding, format and clinical context of patient data. In addition, data may be omitted in some cases. CLINICAL DECISIONS SHOULD BE BASED ON THE PRIMARY CLINICAL RECORDS. [email or web address] [facility]. provides no warranty or guarantee of the accuracy or completeness of information in this document.
[2024-07-10] MEDS: Lactated Ringers 1,000 ML 15 ML IV (08:27)
--- NOTE | 2024-07-10 09:50 | FLU_PTH ---
PATHOLOGY RESULTS PATIENT: VIL[place] ARCHER [place] [facility] [id number] AGE/SX: 54/F ROOM: RE07/10/[address]: Dr. Georgiana Wayne MD : 1970 BED: DIS: 07/10/2024 SPEC #: [id number] RECD: 07/10/24 10:21 STATUS: CECI MENDEZ #: [id number] TRACY: 07/10/24 09:[address]: Georgiana Wayne DEPT: CYTOLOGY RECD BY: Linh Koch ENTERED: 07/10/24 11:32 SP TYPE: Fluid OTHR DR: Violet Croft, DIRECTOR OF SCIENCE-C Tissues: Urine Urine Procedures: Special Stain Group II Surgery Specimen Level IV Cytospin Fluid HEADER OPERATION: Bilateral selective cytology, bilateral ureteroscopy PRE-OP DIAGNOSIS: Gross hematuria TISSUE SUBMITTED: A- Left kidney urine, B- Right kidney urine DIAGNOSIS CYTOLOGY A. Left kidney urine for cytology (cytospins): Atypical urothelial cells present (Kristi Category System III). See comment. B. Right kidney urine for cytology (cytospins): Atypical urothelial cells present (Kristi Category System III). See comment. 07/11/2024 COMMENT A, B. The Kristi System for urine cytology diagnostic categorization was used in the evaluation of this case. Urothelial cells and clusters are present with mild atypia. Instrumentation may cause changes. Clinical correlation is necessary. CYTOLOGY STUDY Slides are reviewed. CYTOLOGY GROSS A. Received is 5 ml of slightly hazy-colorless fluid labeled with the patient's name and and designated per the requisition as left kidney urine. Submitted for cytology preparation. B. Received is 7 ml of hazy-colorless fluid labeled with the patient's name and and designated per the requisition as right kidney urine. Submitted for cytology preparation. 07/10/2024 TC:? CPT: 97429o6
--- NOTE | 2024-07-10 09:51 | DCINST_ITS ---
Discharge Instructions Diet Discharge Diet: No restrictions Activity Discharge Activity: Return to Normal Activity Dressing / Incision Call your doctor if you observe: Fever of 101 or Higher, Inability to urinate and Inability to have a bowel movement Follow Up Care Please Follow Up With: Georgiana Wayne MD When: The office will call to make arrangements. Test Results: Test results from this visit will be discussed in further detail at your follow- up appointment, if applicable. Discharge Plan Admission Attending Provider: Georgiana Wayne Primary Care Provider: Violet Croft NP Instructions Print Language: Fijian Discharge Orders/Prescriptions Prescriptions: New oxycodone-acetaminophen [Percocet] 5-325 mg tablet 1 tab PO Q8H PRN (Reason: pain) 3 Days Qty: 10 0RF cephalexin 500 mg capsule 500 mg PO Q12 3 Days Qty: 6 0RF phenazopyridine [Pyridium] 200 mg tablet 200 mg PO TID PRN PRN (Reason: Bladder Spasms) 7 Days Qty: 30 0RF Continued ascorbic acid (vitamin C) [C-1000] 1,000 mg tablet 1 g PO DAILY Referrals / Follow Up: Violet Croft NP, PARTS COUNTER SALESPERSON-C [Primary Care Provider] - Disposition Disposition (needs filled in before D/C Order can be placed): Home, Self Care
--- NOTE | 2024-07-10 09:54 | OP.PCM_ITS ---
Operative Report (Standard) Operative Information Surgery/Procedure Performed: Cystoscopy, bilateral selective cytology, bilateral ureteroscopy, right ureteral stent insertion Surgeon: Georgiana Wayne Date of Procedure: 07/10/24 Procedure Start Time: : Procedure Stop Time: : Pre-Operative Diagnosis: gross hematuria Post-Operative Diagnosis: same Select all DRAINS/GRAFTS/IMPLANTS that apply: Drains Drain details: 6 Bulgarian by 24 cm JJ stent on the right Type of Anesthesia: General and Spinal/Supplemental Estimated Blood Loss: Minimal Specimen collected: Yes Description of specimen(s) removed: selective cytology from each renal pelvis Description of surgery: The patient is a 54-year-old female with gross hematuria who presents for further evaluation under anesthesia. Informed consent was obtained. The patient was taken to the operating room and placed on the operating room table. Anesthesia monitored the head, neck, airway, IV access and vital signs throughout the case. Once anesthesia was appropriately ministered, she was alex rashida into dorsolithotomy position and was prepped and draped in usual sterile fashion. The cystoscope was inserted through the urethra under direct visualization into the urinary bladder revealing no evidence of mass, erythema, ulceration or foreign body. The left ureteral orifice was intubated with a Pollick catheter which advanced to 22 cm where normal saline was used for irrigation and fluid was sent for cytologic evaluation. This process was repeated on the patient's right side with a new Pollick catheter and syringe. A 0.035 Glidewire was then passed through the left ureteral orifice into the renal pelvis. The flexible ureteroscope was easily advanced over the wire into the renal pelvis. Each calyx was directly visualized revealing no evidence of mass, erythema, stone or other abnormality. The entire ureter was visualized in its entirety and was found to be normal. At this time the ureteroscope was removed. The 0.035 Glidewire was then passed through the right ureteral orifice and advanced into the renal pelvis. Multiple attempts were made at passage of both flexible and semirigid ureteroscope. I was unable to advance the scope past the distal third of the ureter. There was no evidence of mass, stone or tumor causing an issue at this level. The safety wire was then utilized along with the cystoscope for placement of a 6 Bulgarian 24 cm JJ stent which was placed wi thout difficulty with good positioning in the renal pelvis as well as the urinary bladder. The bladder was then emptied and the patient was awakened and taken to the recovery room in good condition. There were no complications during this procedure. Surgical Findings: Mild right ureteral narrowing with inability to advance ureteroscope. No eviden ce of mass, stone or other abnormality identified. R D Intern securities lending trader: No Complications Complications: No Admit VTE Documentation VTE Present on Admission: Yes VTE Mechan Device Prophylaxis: SCD's VTE Pharm Prophylaxis ordered?: No Reason prophylaxis not ordered: Treatment Not Indicated
[2024-07-10] MEDS: Cefazolin 2 GM in Syringe IV (09:55)
[2024-07-10 10:23] LABS: Cytology, Body Fluid / CSF SEE PATHOLOGY REPORT
--- NOTE | 2024-07-10 10:40 | PCM.POST.ANE ---
Anesthesia: Postop Eval I Current Vital Signs Temperature: 97.7 F Pulse Rate: 70 Blood Pressure: 107/65 Respiratory Rate: 16 Pulse Ox: 92 Oxygen Delivery Method: Room Air Assessment Airway patent: Yes Spontaneous unlabored respirations: Yes Mental status: Asleep nausea: No Vomiting: No Anesthesia Complication: No Fluid Hydration Crystalloid volume administer (ml): 500 Total IV fluid infused: 500 Progress Note Anesthesia document: Postop Eval 1 completed: Yes
--- NOTE | 2024-07-10 11:13 | POSTOPAN2_ITS ---
Anesthesia Postop Eval I Sum Postop Eval Completion status Anesthesia document: Postop Eval 1 completed: Yes Anesthesia Postop Eval I Summary Anesthesia Postop Eval I Summary: Anesthesia Postop Eval I: Assessment Summary Airway patent Yes 07/10/24 10:42 PACKAGE DESIGNER.[email or web address] Spontaneous unlabored Yes 07/10/24 10:42 PACKAGE DESIGNER.JDEF respirations Mental status Asleep 07/10/24 10:42 PACKAGE DESIGNER.JDEF nausea No 07/10/24 10:42 PACKAGE DESIGNER.JDEF Vomiting No 07/10/24 10:42 PACKAGE DESIGNER.JDEF Anesthesia Postop Eval I: Fluid Summary Crystalloid volume administer 500 07/10/24 10:42 PACKAGE DESIGNER.JDEF (ml) Colloids volume administered ( ml) Blood Product volume administered (ml) Total IV fluid infused 500 07/10/24 10:42 PACKAGE DESIGNER.JDEF Anesthesia Postop Eval I: Summary Notes Anesthesia Complication No 07/10/24 10:42 PACKAGE DESIGNER.JDEF Anesthesia Complication Comment: Post-operative progress note Anesthesia: Postop Eval II Evaluation Mental status: Awake Pain Level: 0 nausea: No Vomiting: No
--- NOTE | 2024-07-10 11:13 | PCM.POSTANE2 ---
Anesthesia Postop Eval I Sum Postop Eval Completion status Anesthesia document: Postop Eval 1 completed: Yes Anesthesia Postop Eval I Summary Anesthesia Postop Eval I Summary: Anesthesia Postop Eval I: Assessment Summary Airway patent Yes 07/10/24 10:42 ADVERTISING DISPATCH CLERKS SUPERVISOR.JDEF Spontaneous unlabored Yes 07/10/24 10:42 ADVERTISING DISPATCH CLERKS SUPERVISOR.JDEF respirations Mental status Asleep 07/10/24 10:42 ADVERTISING DISPATCH CLERKS SUPERVISOR.JDEF nausea No 07/10/24 10:42 ADVERTISING DISPATCH CLERKS SUPERVISOR.JDEF Vomiting No 07/10/24 10:42 ADVERTISING DISPATCH CLERKS SUPERVISOR.JDEF Anesthesia Postop Eval I: Fluid Summary Crystalloid volume administer 500 07/10/24 10:42 ADVERTISING DISPATCH CLERKS SUPERVISOR.JDEF (ml) Colloids volume administered ( ml) Blood Product volume administered (ml) Total IV fluid infused 500 07/10/24 10:42 ADVERTISING DISPATCH CLERKS SUPERVISOR.JDEF Anesthesia Postop Eval I: Summary Notes Anesthesia Complication No 07/10/24 10:42 ADVERTISING DISPATCH CLERKS SUPERVISOR.JDEF Anesthesia Complication Comment: Post-operative progress note Anesthesia: Postop Eval II Evaluation Mental status: Awake Pain Level: 0 nausea: No Vomiting: No
== END 2024-07-10 11:35 | disposition home or self-care (01) ==
LOC: SDC 07:58 → AC 07:59
PROVIDERS: PCP Nurse Practitioner Primary Care; Referring Provider Urology; Visit Provider Urology
PROC: (CPT 52332; principal; 2024-07-10 09:40)
DX: N13.5 Crossing vessel and stricture of ureter without hydronephrosis (principal); R31.0 Gross hematuria; N39.3 Stress incontinence (female) (male); N32.89 Other specified disorders of bladder; R15.0 Incomplete defecation; Z78.0 Asymptomatic menopausal state
CPT/HCPCS: 52332; 76000; 88108; 88305; 88313; J7120; C2617; J2405

== ENCOUNTER 2024-07-24 11:46 | Day surgery (SDC) | payer OTHER, SELFPAY ==
[2024-07-24] VITALS (10 sets, daily range): BP systolic 103–117; BP diastolic 64–71; PULSE 61–70; RESP 16; TEMP 36.1–36.8; O2SAT 96–100; BMI 36.6
[2024-07-24] MEDS: Lactated Ringers 1,000 ML 15 ML IV (12:31)
[2024-07-24] MEDS: Cefazolin 2 GM in Syringe IV (13:50)
== END 2024-07-24 15:43 | disposition home or self-care (01) ==
LOC: SDC 11:46 → AC 11:47
PROVIDERS: PCP Nurse Practitioner Primary Care; Referring Provider Urology; Visit Provider Urology
PROC: (CPT 52310; principal; 2024-07-24 13:10)
DX: R31.0 Gross hematuria (principal); R35.0 Frequency of micturition; R39.15 Urgency of urination
CPT/HCPCS: 52310; 00910; 76000; J7120; J2405

== ENCOUNTER → 2024-09-02 | Outpatient (CLI) | payer OTHER, SELFPAY ==
--- NOTE | 2024-09-02 17:08 | CYSPIN_PTH ---
PATIENT: VILMA ARCHER [facility]: [facility] U#:[id number] AGE/SX: 54/F ROOM: RE09/02/[address]: Dr. Georgiana Wayne MD : 1970 BED: DIS: 09/02/2024 SPEC #: [id number] RECD: 09/03/24 08:03 STATUS: CECI RESanjana #: [id number] TRACY: 09/02/24 17:[address]: Georgiana Wayne DEPT: CYTOLOGY RECD BY: Elva Bustos ENTERED: 09/03/24 08:03 SP TYPE: CYSPIN FL OTHR DR: Violet Croft, [facility]-C Tissues: Urine Procedures: Pap Stain (control) Special Stain Group II Cytospin Fluid HEADER OPERATION: Not noted PRE-OP DIAGNOSIS: Hematuria TISSUE SUBMITTED: Urine for cytology DIAGNOSIS CYTOLOGY Urine for cytology (cytospins): Negative for high grade urothelial carcinoma, Kristi Category System II. See comment. AM. 09/03/2024 COMMENT The Kristi System for urine cytology diagnostic categorization was used in the evaluation of this case. CYTOLOGY STUDY Slides are reviewed. CYTOLOGY GROSS Received is 50 ml of yellow cloudy fluid labeled with the patient's name and and designated per the requisition as urine. Submitted for cytology preparation. Mr 09/03/2024 TC:5 CPT: 95539
[2024-09-02 17:09] LABS: Cytology, Body Fluid / CSF SEE PATHOLOGY REPORT
== END | disposition home or self-care (01) ==
LOC: LABSPEC 15:54
PROVIDERS: PCP Nurse Practitioner Primary Care; Visit Provider Urology
DX: R31.9 Hematuria, unspecified (principal)
CPT/HCPCS: 88108; 88313